=== PATIENT | female | born 1980 | race Two or more races ===

== ENCOUNTER 2024-07-10 07:45 | Inpatient (IN) | payer OTHER ==
[~2024-07-10] VITALS: Ht 157.5 cm; Wt 61.7 kg
[2024-07-10 08:42] LABS: PH,URINE 5.5 (5.0-8.0); URINE APPEARANCE Clear; URINE BILIRRUBIN Negative (NEGATIVE); URINE BLOOD Negative; URINE COLOR Yellow; URINE GLUCOSE Negative (NEGATIVE); URINE KETONE Negative (NEGATIVE); URINE LEUKOCYTE Trace; URINE NITRATE Negative; URINE PROTEIN Negative (NEGATIVE); URINE UROBILINOGEN 0.2 E.U./dl
[2024-07-10 08:43] LABS: URINE BACTERIA 1583.7 uL (0.0-1933); URINE EPITHELIAL CELLS 34.4 uL (0.0-38.8); URINE RBC 3.9 uL (0.0-20.8); URINE WBC 22.7 uL (0.0-23.2)
[2024-07-10 08:45] LABS: HEMATOCRIT 42.5 % (36.0-45.00); HEMOGLOBIN 13.8 g/dL (12.0-15.00); MEAN CELL VOLUME 84.9 fL (80.00-100.00); MEAN CORPUSCULAR HEMOGLOBIN 27.6 pg (27.00-32.0); MEAN CORPUSCULAR HGB CONC 32.5 g/dl (32.0-36.0); PLATELET COUNT 322 K/uL (150-450); RED BLOOD COUNT 5.01 M/uL (4.00-6.00); URINE CAST 0.15 uL (0.0-1.40)
[2024-07-10 08:53] VITALS: BP 105/63
[2024-07-10 09:16] LABS: INR 1.03; PROTHROMBIN TIME 11.2 SECONDS (9.0-11.5)
[2024-07-10 09:23] LABS: ALBUMIN 3.8 gm/dL (3.4-5.0); BILIRUBIN TOTAL 0.43 mg/dL (0.3-1.2); CALCIUM 9.2 mg/dL (8.5-10.1); CREATININE SERUM 0.82 mg/dL (0.55-1.02); GFR 75.73; GLOBULINA 3.7 G/DL (2.4-3.5); POTASSIUM 4.28 mEq/L (3.5-5.1); TOTAL PROTEIN 7.5 gm/dL (6.4-8.2)
[2024-07-10 10:11] LABS: RH POSITIVE
[2024-07-13] MEDS ORDERED: POVIDONE-IODINE 118 ML BOTT TOP ONE (09:15)
[2024-07-13] MEDS ORDERED: CLINDAMYCIN PHOSPHATE 150 MG/ML (600mg) IV ONE (09:15)
[2024-07-13] MEDS ORDERED: MORPHINE SULFATE 4 MG/ML CARTRIDGE IV PRN (10:00)
[2024-07-13] MEDS ORDERED: KETOROLAC TROMETHAMINE 30 MG VIAL IV ONE ×2 (10:00→12:05)
[2024-07-13] MEDS ORDERED: RINGERS SOLUTION,LACTATED 1,000 ML IV SCH (10:00)
[2024-07-13] MEDS ORDERED: OxyCODONE HCL 5 MG TABLET (ROXICODONE) PO PRN (10:45)
[2024-07-13] MEDS ORDERED: SURGIFLO APPLICATOR 1 EACH APPL TOP ONE (10:45)
[2024-07-13] MEDS ORDERED: HEMOSTATIC MATRIX 1 KIT KIT TOP ONE (10:45)
[2024-07-13] MEDS ORDERED: KETOROLAC TROMETHAMINE 30 MG VIAL IM SCH (12:00)
[2024-07-13] MEDS ORDERED: ACETAMINOPHEN 500 MG GEL..CAP PO SCH (12:00)
[2024-07-13] MEDS ORDERED: HYOSCYAMINE SULFATE 0.125 MG TAB.SUBL SL SCH (13:00)
[2024-07-13] MEDS ORDERED: SIMETHICONE 125 MG CAPSULE PO SCH (13:00)
[2024-07-13] MEDS ORDERED: METOCLOPRAMIDE HCL 5 MG/ML VIAL IV SCH (17:00)
[2024-07-13] MEDS ORDERED: METRONIDAZOLE/SODIUM CHLORIDE 500 MG/100 ML PIGGYBACK IV SCH (17:00)
[2024-07-13 17:51] VITALS: BP 105/63; O2SAT 100
[2024-07-13 18:07] LABS: HEMATOCRIT 37.8 % (36.0-45.00); HEMOGLOBIN 12.2 g/dL (12.0-15.00); MEAN CELL VOLUME 84.9 fL (80.00-100.00); MEAN CORPUSCULAR HEMOGLOBIN 27.5 pg (27.00-32.0); MEAN CORPUSCULAR HGB CONC 32.4 g/dl (32.0-36.0); PLATELET COUNT 288 K/uL (150-450); RED BLOOD COUNT 4.46 M/uL (4.00-6.00)
[2024-07-13 18:27] LABS: ALBUMIN 3.1 gm/dL (3.4-5.0); CALCIUM 8.2 mg/dL (8.5-10.1); CREATININE SERUM 0.83 mg/dL (0.55-1.02); GFR 74.68; POTASSIUM 4.16 mEq/L (3.5-5.1)
[2024-07-13] MEDS ORDERED: GABAPENTIN 300 MG CAPSULE PO SCH (21:00)
[2024-07-13] MEDS ORDERED: FAMOTIDINE/PF 20 MG/2 ML VIAL IV PUSH SCH (21:00)
[2024-07-13] MEDS ORDERED: DOCUSATE SODIUM 100MG CAP PO SCH (21:00)
[2024-07-13] MEDS ORDERED: CIPROFLOXACIN IN 5 % DEXTROSE 400 MG/200 ML PIGGYBAG IV SCH (21:00)
[2024-07-14 00:11] VITALS: BP 90/60; O2SAT 97
[2024-07-14 00:37] LABS: MEAN CELL VOLUME 84.3 fL (80.00-100.00); MEAN CORPUSCULAR HEMOGLOBIN 27.7 pg (27.00-32.0); MEAN CORPUSCULAR HGB CONC 32.9 g/dl (32.0-36.0); PLATELET COUNT 261 K/uL (150-450); RED BLOOD COUNT 4.15 M/uL (4.00-6.00); RED CELL DISTRIBUTION WIDTH 14.1 % (11.5-14.5)
[2024-07-14 00:38] LABS: HEMOGLOBIN 11.5 g/dL (12.0-15.00)
[2024-07-14 00:58] LABS: ALBUMIN 2.8 gm/dL (3.4-5.0); CALCIUM 7.9 mg/dL (8.5-10.1); CREATININE SERUM 0.79 mg/dL (0.55-1.02); GFR 79.06; PHOSPHOROUS 3.3 mg/dL (2.5-4.9); POTASSIUM 3.92 mEq/L (3.5-5.1)
[2024-07-14 04:30] VITALS: BP 90/60
[2024-07-14 08:27] VITALS: BP 100/62
[2024-07-14] MEDS ORDERED: CIPROFLOXACIN IN 5 % DEXTROSE 400 MG/200 ML PIGGYBAG IV NR (10:30)
== END 2024-07-14 12:50 | disposition home or self-care (01) | DRG 742 ==
LOC: SURG 08:15 → EDSTATUS 08:15 → ADM 08:15 → O/R 07-13 06:19 → OB/GYN 07-13 14:46
PROVIDERS: Obstetrics & Gynecology; Surgery; ADMIT Obstetrics & Gynecology Gynecologic Oncology; ATTEND Obstetrics & Gynecology Gynecologic Oncology
PROC: 0DBW4ZZ Excision of Peritoneum, Percutaneous Endoscopic Approach (ICD-10-PCS; 2024-07-13)
PROC: 0TN74ZZ Release Left Ureter, Percutaneous Endoscopic Approach (ICD-10-PCS; 2024-07-13)
PROC: 0TN64ZZ Release Right Ureter, Percutaneous Endoscopic Approach (ICD-10-PCS; 2024-07-13)
PROC: 0DNW4ZZ Release Peritoneum, Percutaneous Endoscopic Approach (ICD-10-PCS; 2024-07-13)
PROC: 0DBU4ZZ Excision of Omentum, Percutaneous Endoscopic Approach (ICD-10-PCS; 2024-07-13)
PROC: 3E1M48Z Irrigation of Peritoneal Cavity using Irrigating Substance, Percutaneous Endoscopic Approach (ICD-10-PCS; 2024-07-13)
PROC: 0DQE4ZZ Repair Large Intestine, Percutaneous Endoscopic Approach (ICD-10-PCS; 2024-07-13)
PROC: 0DNP4ZZ Release Rectum, Percutaneous Endoscopic Approach (ICD-10-PCS; 2024-07-13)
PROC: 0DNN4ZZ Release Sigmoid Colon, Percutaneous Endoscopic Approach (ICD-10-PCS; 2024-07-13)
PROC: 0DTJ4ZZ Resection of Appendix, Percutaneous Endoscopic Approach (ICD-10-PCS; 2024-07-13)
PROC: 0DJD8ZZ Inspection of Lower Intestinal Tract, Via Natural or Artificial Opening Endoscopic (ICD-10-PCS; 2024-07-13)
PROC: 0UT64ZZ Resection of Left Fallopian Tube, Percutaneous Endoscopic Approach (ICD-10-PCS; principal; 2024-07-13 14:45)
PROC: 0UT14ZZ Resection of Left Ovary, Percutaneous Endoscopic Approach (ICD-10-PCS; 2024-07-13 14:45)
DX: N83.12 Corpus luteum cyst of left ovary (principal); K91.72 Accidental puncture and laceration of a digestive system organ or structure during other procedure; K66.0 Peritoneal adhesions (postprocedural) (postinfection)